=== PATIENT | male | born 1935 | race Asian ===

== ENCOUNTER → 2017-01-07 | Outpatient (CLI) | payer OTHER, MEDICAID ==
[~2017-01-07] MED LIST: D-ME118S13 PO; LORA10TA7 PO; TAMS0.4C32 PO; VALS160T2 PO
== END | disposition home or self-care (01) ==
LOC: RADPV 15:44
PROVIDERS: ATTEND Family Medicine
DX: L92.3 Foreign body granuloma of the skin and subcutaneous tissue (principal)

== ENCOUNTER → 2017-10-25 | Outpatient (CLI) | payer MEDICARE, MEDICAID | END | disposition home or self-care (01) | LOC: RADPV 15:13 | PROVIDERS: ATTEND Family Medicine | DX: J84.10 Pulmonary fibrosis, unspecified (principal); R76.11 Nonspecific reaction to tuberculin skin test without active tuberculosis ==

== ENCOUNTER → 2018-02-28 | Outpatient (CLI) | payer MEDICARE, MEDICAID | END | disposition home or self-care (01) | LOC: RADPV 13:26 | PROVIDERS: ATTEND Family Medicine | DX: M85.811 Other specified disorders of bone density and structure, right shoulder (principal); M19.011 Primary osteoarthritis, right shoulder; M16.0 Bilateral primary osteoarthritis of hip; R07.81 Pleurodynia | CPT/HCPCS: 71101; 73502 ==

== ENCOUNTER 2019-03-15 10:55 | Emergency (ER) | payer MEDICARE, MEDICAID ==
[~2019-03-15] VITALS: Ht 162.6 cm; Wt 54.5 kg
[~2019-03-15 10:55] MED LIST changes: +TAMS-13 PO; -TAMS0.4C32 PO
[2019-03-15 13:56] VITALS: BP 121/77
== END 2019-03-15 14:00 | disposition home or self-care (01) ==
LOC: EMS 10:57
DX: T22.111A Burn of first degree of right forearm, initial encounter (principal); X11.8XXA Contact with other hot tap-water, initial encounter; Y93.89 Activity, other specified; Y92.89 Other specified places as the place of occurrence of the external cause; Y99.8 Other external cause status

== ENCOUNTER → 2020-07-19 | Outpatient (CLI) | payer MEDICARE, MEDICAID ==
[~2020-07-19] MED LIST changes: -D-ME118S13 PO
== END | disposition home or self-care (01) ==
LOC: RADPV 14:30
PROVIDERS: ATTEND Family Medicine
DX: R76.11 Nonspecific reaction to tuberculin skin test without active tuberculosis (principal)
CPT/HCPCS: 71045

== ENCOUNTER → 2021-02-04 | Outpatient (CLI) | payer MEDICARE, MEDICAID | END | disposition home or self-care (01) | LOC: RADPV 10:14 | PROVIDERS: ATTEND Internal Medicine Cardiovascular Disease | DX: I07.8 Other rheumatic tricuspid valve diseases (principal); I49.9 Cardiac arrhythmia, unspecified | CPT/HCPCS: 93306 ==

== ENCOUNTER 2021-11-23 14:53 | Emergency (ER) | payer MEDICARE, MEDICAID ==
[~2021-11-23] VITALS: Ht 157.5 cm; Wt 52.3 kg
[2021-11-23 15:03] VITALS: BP 159/67
[2021-11-23] MEDS ORDERED: LOSA-381 PO (15:05)
[2021-11-23] MEDS ORDERED: AMOX-426 PO (15:40)
== END 2021-11-23 16:00 | disposition home or self-care (01) ==
LOC: EMS 14:53
DX: T18.5XXA Foreign body in anus and rectum, initial encounter (principal); I10 Essential (primary) hypertension; N40.0 Benign prostatic hyperplasia without lower urinary tract symptoms; X58.XXXA Exposure to other specified factors, initial encounter; Y93.89 Activity, other specified; Y92.89 Other specified places as the place of occurrence of the external cause; Y99.8 Other external cause status
CPT/HCPCS: 99284; Z7502